=== PATIENT | male | born 1995 | race African-American/Black ===

== ENCOUNTER 2018-06-09 16:18 | Emergency (ER) | payer OTHER ==
[~2018-06-09] VITALS: Ht 182.9 cm; Wt 82.6 kg
[2018-06-09] MEDS ORDERED: FAMOTIDINE/PF INJ 20 MG/2 ML VIAL IV ONE ×2 (16:30→16:31)
[2018-06-09] MEDS ORDERED: DEXAMETHASONE SOD PHOSPHATE 10 MG/ML VIAL IV ONE (16:30)
[2018-06-09] MEDS ORDERED: DEXAMETHASONE SOD PHOSPHATE 10 MG/ML VIAL ONE (16:30)
[2018-06-09] MEDS ORDERED: diphenhydrAMINE HCL 50 MG/ML VIAL IV ONE (16:30)
[2018-06-09] MEDS ORDERED: diphenhydrAMINE HCL 50 MG/ML VIAL ONE (16:30)
--- NOTE | 2018-06-09 16:42 | NUR ---
REMOVED PATIENT IV IS IS NOT PATENT AND HURTING THE PATIENT. MD MADE AWARE. IV REMOVED PRESSURE AND DRESSING APPLIED NO BLEEDING NOTED. CATH TIP INTACT.
[2018-06-09] MEDS ORDERED: FAMOTIDINE (20 MG) 20 MG TABLET ONE (16:45)
[2018-06-09] MEDS ORDERED: diphenhydrAMINE HCL 50 MG CAPSULE ONE (16:45)
[2018-06-09] MEDS ORDERED: predniSONE 20 MG TABLET ONE (16:45)
[2018-06-09] MEDS ORDERED: diphenhydrAMINE HCL 25 MG CAPSULE PO ONE (17:00)
[2018-06-09] MEDS ORDERED: predniSONE 20 MG TABLET PO ONE (17:00)
[2018-06-09] MEDS ORDERED: FAMOTIDINE (20 MG) 20 MG TABLET PO ONE (17:00)
[2018-06-09 17:37] VITALS: BP 140/58
--- NOTE | 2018-06-09 17:38 | NUR ---
Patient discharged to home in stable condition. Written and verbal after care instructions given. Patient verbalizes understanding of instruction. RX PROVIDED AND EDUCATED. PATIENT DC'D TO WAITING ROOM
== END 2018-06-09 17:46 | disposition home or self-care (01) ==
LOC: ER 16:25
DX: T78.2XXA Anaphylactic shock, unspecified, initial encounter (principal); Z60.2 Problems related to living alone; Z91.010 Allergy to peanuts
CPT/HCPCS: J1100; J1200; J3490; Q0163